=== PATIENT | male | born 1960 | race Caucasian/White ===

== ENCOUNTER 2018-03-04 05:29 | Inpatient (IN) | payer OTHER ==
[2018-02-24 13:06] LABS: HEMOGLOBIN 16.1 gm/dL (14.0-18.0); MCH 30.6 pg (26.0-34.0); MCV 87.4 fL (80.0-100.0); RBC 5.27 mil/uL (4.50-6.00); RDW 13.7 % (10.5-14.5)
[2018-02-24 13:07] LABS: URINE BILIRUBIN NEGATIVE (Negative); URINE BLOOD NEGATIVE (Negative); URINE CLARITY CLEAR; URINE COLOR YELLOW; URINE GLUCOSE-RANDOM* 3+ (Negative); URINE KETONES NEGATIVE (Negative); URINE LEUKOCYTES-REFLEX NEGATIVE (Negative); URINE NITRITE-REFLEX NEGATIVE (Negative); URINE PROTEIN (DIPSTICK) NEGATIVE (Negative); URINE UROBILINOGEN 0.2 E.U./dl (0.2-1.0)
[2018-02-24 13:26] LABS: APTT 22.1 Seconds (24.5-32.8); PROTIME 10.6 Seconds (9.3-11.4)
[~2018-03-04] VITALS: Ht 175.3 cm; Wt 95.3 kg
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
[~2018-03-04 05:29] MED LIST: ASPIR 8181 MG PO; BENAZEPRIL 10 M10 MG PO; GLUCOPHAGE XR500 MG PO; IMODIUM A-D2 M1 PO; LANTUS SUBQ; LIPITOR40 MG PO; LYRICA 50 MG50 MG PO; PERCOCET 10-321 EACH PO; PRANDIN2 MG PO; PROTONIX40 M1 PO; TOPROL XL25 MG PO; ZYRTEC10 M5 PO
[2018-03-04 08:21] VITALS: BP 133/75
[2018-03-04 08:22] LABS: CALCIUM 10.1 mg/dL (8.5-10.1); CREATININE 0.9 mg/dL (0.7-1.3); POTASSIUM 3.6 mmol/L (3.5-5.1)
[2018-03-04 15:18] VITALS: BP 111/71
[2018-03-04 19:25] VITALS: BP 111/71
[2018-03-04 19:34] VITALS: BP 117/72
[2018-03-05 05:10] VITALS: BP 93/55
[2018-03-05 06:31] LABS: HEMATOCRIT 39.5 % (42.0-52.0); HEMOGLOBIN 13.4 gm/dL (14.0-18.0); MCH 30.1 pg (26.0-34.0); MCV 88.6 fL (80.0-100.0); RBC 4.45 mil/uL (4.50-6.00); RDW 13.5 % (10.5-14.5); WBC 12.8 thou/uL (4.0-11.0)
[2018-03-05 06:47] LABS: CALCIUM 9.3 mg/dL (8.5-10.1); CREATININE 0.7 mg/dL (0.7-1.3); MAGNESIUM 1.6 mg/dL (1.8-2.4); POTASSIUM 3.6 mmol/L (3.5-5.1)
[2018-03-05 07:00] VITALS: BP 106/63
[2018-03-05 16:58] VITALS: BP 106/63
[2018-03-05 19:34] VITALS: BP 122/66
[2018-03-06 05:36] VITALS: BP 128/67
[2018-03-06 07:42] LABS: HEMATOCRIT 40.9 % (42.0-52.0); HEMOGLOBIN 14.4 gm/dL (14.0-18.0); MCH 30.8 pg (26.0-34.0); MCHC 35.2 g/dL (28.0-37.0); MCV 87.5 fL (80.0-100.0); RBC 4.67 mil/uL (4.50-6.00); RDW 13.3 % (10.5-14.5); WBC 11.2 thou/uL (4.0-11.0)
[2018-03-06 07:45] VITALS: BP 121/74
[2018-03-06 07:56] LABS: CALCIUM 9.2 mg/dL (8.5-10.1); CREATININE 0.7 mg/dL (0.7-1.3); MAGNESIUM 1.7 mg/dL (1.8-2.4); POTASSIUM 3.6 mmol/L (3.5-5.1)
[2018-03-06 19:36] VITALS: BP 89/56
[2018-03-07 03:58] VITALS: BP 101/61
[2018-03-07 06:26] LABS: HEMATOCRIT 38.4 % (42.0-52.0); HEMOGLOBIN 13.7 gm/dL (14.0-18.0); MCH 31.2 pg (26.0-34.0); MCHC 35.7 g/dL (28.0-37.0); MCV 87.2 fL (80.0-100.0); RBC 4.4 mil/uL (4.50-6.00); RDW 13.6 % (10.5-14.5)
[2018-03-07 06:45] LABS: CALCIUM 9.4 mg/dL (8.5-10.1); CREATININE 0.9 mg/dL (0.7-1.3); MAGNESIUM 1.8 mg/dL (1.8-2.4); POTASSIUM 3.9 mmol/L (3.5-5.1)
[2018-03-07 07:27] VITALS: BP 106/60
[2018-03-07] MEDS ORDERED: MIRALAX17 GM PO (14:03)
[2018-03-07] MEDS ORDERED: ASPIRIN325 PO (14:03)
[2018-03-07] MEDS ORDERED: MORPHINE SULFAT15 M3 PO (14:03)
[2018-03-07] MEDS ORDERED: COLACE 100 MG100 MG PO (14:03)
[2018-03-07] MEDS ORDERED: PERCOCET 10-321 EACH PO (14:03)
[2018-03-07 22:31] VITALS: BP 86/46
[2018-03-08 04:27] VITALS: BP 94/55
[2018-03-08 04:31] LABS: HEMATOCRIT 36.3 % (42.0-52.0); HEMOGLOBIN 12.6 gm/dL (14.0-18.0); MCH 30.4 pg (26.0-34.0); MCHC 34.8 g/dL (28.0-37.0); MCV 87.4 fL (80.0-100.0); RBC 4.16 mil/uL (4.50-6.00); RDW 13.4 % (10.5-14.5); WBC 10.6 thou/uL (4.0-11.0)
[2018-03-08 04:39] LABS: CALCIUM 9.4 mg/dL (8.5-10.1); CREATININE 0.8 mg/dL (0.7-1.3); MAGNESIUM 1.6 mg/dL (1.8-2.4); POTASSIUM 3.9 mmol/L (3.5-5.1)
[2018-03-08 07:15] VITALS: BP 101/66
[2018-03-08 12:05] VITALS: BP 106/63
[2018-03-08 12:30] VITALS: BP 106/63
[2018-03-08 16:16] VITALS: BP 106/63
[2018-03-08 17:07] VITALS: BP 106/63
== END 2018-03-08 17:16 | disposition home health service (06) | DRG 470 ==
LOC: 4E 05:29 → TBA 05:29 → PRE 05:40 → 4E 14:53 → PRE 15:30 → ENTRNSPT 03-08 17:03 → 4E 03-08 17:16
PROVIDERS: Internal Medicine; Orthopaedic Surgery
PROC: 0SRC0J9 Replacement of Right Knee Joint with Synthetic Substitute, Cemented, Open Approach (ICD-10-PCS; principal; 2018-03-04)
DX: M17.11 Unilateral primary osteoarthritis, right knee (principal); E11.9 Type 2 diabetes mellitus without complications; I10 Essential (primary) hypertension; E78.5 Hyperlipidemia, unspecified; E83.42 Hypomagnesemia
CPT/HCPCS: 10783; 50010; 50101; 50415; 50954; 51225; 51320; 51412; 51771; 52001; 52282; 53078; 56524; 56525; 56530; 57103; 57104; 57180; 62110; 62900; 70005